=== PATIENT | female | born 1950 | race Caucasian/White ===

== ENCOUNTER 2020-11-11 07:56 | Outpatient (RCR) | payer MEDICARE, BC, SELFPAY ==
[2020-11-11 08:13] VITALS: BP 141/106; PULSE 103; TEMP 36.6
[2020-11-11 09:50] LABS: Erythrocyte Sedimentation Rate 63 mm/hr (0-30)
[2020-11-11 09:53] LABS: Basophil# 0.08 X10^3/uL; Basophil% 0.9 % (0-1); Eosinophils% 4.5 % (0-5); Hematocrit 46.6 % (37-47); Hemoglobin 14.2 g/dL (12.0-15.0); Lymphocyte % 25.7 % (19-41); Mean Corp Hgb Conc 30.5 g/dL (32-36); Mean Corpuscular Hgb 30.3 pg (27.0-32.0); Mean Corpuscular Volume 99.6 fL (81-99); Mean Platelet Vol. 9.5 fl (6.2-12.0); Monocyte# 1.13 X10^3/uL; Monocyte% 12.6 % (0-10); NRBC Flagged by Analyzer 0 % (0-5); Neutrophil # 5.01 X10^3/uL (2.7-7.7); Neutrophil % 55.9 % (47-70); Platelet Count 265 K/mm3 (150-450); RBC Distribution Width CV 14.6 % (11.6-14.6); RBC Distribution Width SD 53.6 fl (35.1-43.9); Red Blood Count 4.68 M/mm3 (4.2-5.4)
[2020-11-11 10:42] LABS: ALB/GLOB Ratio 0.8 RATIO (0.9-2.4); AST(SGOT) 46 U/L (15-37); Alanine Aminotransfer ALT/SGPT 54 U/L (13-56); Albumin, Serum 3.3 g/dL (3.2-5.0); Alkaline Phosphatase 105 U/L (45-117); Anion Gap 6 (5-15); BUN 13 mg/dL (7-18); BUN/Creat Ratio 14.7 RATIO (10-20); CRP 5.27 mg/L (0.0-3.0); Calcium,Total 8.6 mg/dL (8.5-10.1); Chloride 104 mmol/L (98-107); Creatinine, Serum 0.88 mg/dL (0.55-1.02); EST Glomerular Filtration Rate 67 mL/min (>60); Est Glom Filt Rate - Afr Amer 81 mL/min (>60); Glucose 86 mg/dL (74-106); Potassium 4.1 mmol/L (3.5-5.1); Prealbumin 20.3 mg/dL (20.0-40.0); Protein, Total 7.3 g/dL (6.4-8.2); Sodium Level 138 mmol/L (136-145)
--- NOTE | 2020-11-11 12:35 | PCM.WC.HP ---
History of Present Illness Date of Service: 11/11/20 Chief Complaint: left leg wound History of Wound: Gladis is a pleasant 70-year-old female with a past medical history of hypertension, stroke, coronary artery disease status post coronary stenting, and COPD. She presents today to the wound healing center for an initial evaluation of a left leg wound. She reports that her wound occurred approximately 1 month ago when she fell out of bed and scratched her left leg. She has been using Medihoney and a Telfa pad as a wound dressing, and changing this daily. She has been washing the wound with antibacterial soap and water daily. She does not use compression. She denies any history of vascular disease in the lower extremities. She denies any history of diabetes or renal disease. She suffered a stroke toward the end 2019, and has some residual left-sided upper and lower extremity weakness. She takes Plavix. She is a daily smoker. The patient denies fever, chills, nausea, vomiting, or diarrhea. The patient has not had significant redness, swelling, or purulent/malodorous drainage from affected area. [facility] Medical History (Updated 11/11/20 @ 12:59 by Katrin Herrera DISEASE CASE MANAGER RN, DISEASE CASE MANAGER RN-C) Atherosclerotic heart disease [place] coronary artery w/angina pectoris AVM (arteriovenous malformation) of colon, acquired with hemorrhage Bilateral pulmonary embolism Bipolar disorder with depression Cholelithiasis COPD (chronic obstructive pulmonary disease) DDD (degenerative disc disease) Esophageal stricture Gallstones GI bleed Hypertension Nicotine abuse Stroke Home Medications albuterol sulfate 90 mcg/actuation aerosol inhaler 1 - 2 puff INHALATION Q4H PRN PRN 100 Days #25 06/30/17 [History Last Taken Unknown] clonazepam 0.25 mg PO LUNCH 06/30/17 [History Last Taken Unknown] clonazepam 0.5 mg tablet 0.5 mg PO QHS 06/30/17 [History Last Taken Unknown] nitroglycerin 0.4 mg SUBLINGUAL Q5M PRN 06/30/17 [History Last Taken Unknown] iron aspgl,ps complex-vit C-sa 150 mg PO DAILYCM #30 cap 07/03/17 [Rx Last Taken Unknown] atorvastatin 80 mg tablet 80 mg PO QHS tab 08/28/17 [History Last Taken Unknown] lisinopril 40 mg tablet 40 mg PO QDAY 08/28/17 [History Last Taken Unknown] pantoprazole 40 mg tablet,delayed release 40 mg PO QDAY 08/28/17 [History Last Taken Unknown] rivaroxaban 20 mg tablet 20 mg PO QDAY 08/28/17 [History Last Taken Unknown] venlafaxine 75 mg capsule,extended release 24 hr 75 mg PO QDAY 09/17/17 [History Last Taken Unknown] Allergy/AdvReac Type Severity Reaction Status Date / Time No Known Allergies Allergy Verified 11/11/20 08:28 Family History Mother Heart disease Sister Heart disease Brother Heart disease Surgical History History of umbilical hernia repair Presence of stent in coronary artery in patient with coronary artery disease Social History (Updated 09/18/17 @ 11:[address] Ramiro Freeman MD) Smoking Status: Current every day smoker tobacco type: cigarettes Tobacco: How many years used: 40 ROS Constitutional Constitutional: Denies chills, fever(s) or night sweats Eyes Eyes: Denies change in vision or double vision ENT HEENT: Denies lip swelling or tongue swelling Cardiovascular Cardiovascular: Denies chest pain, leg edema or palpitations Respiratory/Chest Respiratory/Chest: Reports cough, shortness of breath with exertion and wheezing Gastrointestinal Gastrointestinal: Denies diarrhea, nausea or vomiting Genitourinary Genitourinary: Denies dysuria or hematuria Musculoskeletal Musculoskeletal: Reports extremity pain and muscle weakness; Denies abnormal gait Integumentary Integumentary: Reports wounds; Denies rash Neurologic Neurologic: Reports abnormal gait and focal weakness; Denies abnormal speech Endocrine Endocrinology: Denies cold intolerance, heat intolerance, polydipsia or polyuria Hematologic/Lymphatic Hematologic/Lymphatic: Reports easy bleeding; Denies easy bruising Vital Signs Vital Signs Vital Signs: 11/11/20 08:13 Temperature 97.8 F Temperature Source Temporal Pulse Rate 103 H Blood Pressure 141/106 H Blood Pressure Mean 117 Blood Pressure Source Monitor Blood Pressure Position Semi-Fowlers Blood Pressure Location Right Arm Physical Exam Const alert, no apparent distress and healthy appearing General Appearance: cooperative, comfortable and well kempt HEENT Head and Scalp: normocephalic and atraumatic General Ear: hearing grossly impaired Eyes EOMs intact bilaterally Neck supple and no JVD Resp normal respiratory effort, normal air movement and no use of accessory muscles Auscultation: wheezes throughout and diminished lung sounds diffuse; Negative for crackles, rales or rhonchi Cardio regular rate and regular rhythm GI normal to inspection, nondistended, normoactive bowel sounds Extremity normal capillary refill, no joint enlargement, no calf tenderness and no pedal edema General Extremity: edema left lower extremity mild; Negative for clubbing or cyanosis Peripheral Pulses: Yes dorsalis pedis pulses present bilateral 2+ Skin Wounds: wounds noted No malodorous Wound Narrative: Medial left lower leg ulcer with moderate amount of slough and devitalized tissue present. Mild periulcer erythema present. Mild periulcer swelling present. No tunneling, undermining, or probing to bone. No purulent/malodorous drainage. Tender to palpation. Neuro oriented x3 and moves all extremities Motor Exam: strength abnormal other (Decreased strength in left upper and left lower extremities) Psych mental status grossly normal, cooperative and affect normal Debridement Note Debridement Note Post-Debridement Measurements and Additional Note: Post-Debridement Measurements/Treatment - Nurse 3 - General Ulcer D/C NN Start: 11/11/20 08:13 Freq: Status: Active Protocol: Activity Type Activity Date Activity User E-Sign Co-Sign Detail Recorded Client Recorded Date Recorded By Document 11/11/20 09:08 CHRISTIANNE [id number] 11/11/20 09:08 CHRISTIANNE 11/11/20 09:08 Wound Care Nurse 3 #1 Left Medial Lower Extremity -Ulcer Cleansing Rinsed/ Irrigated with Saline -Primary Dressing Applied Aquacel Extra -Primary Dressing Covered/Secured with Dry Gauze, Secured with Tape -Aquacel Extra 1 Pain Scale: 0-10 Numeric Is Patient Pain Free? Yes WC - Visit Discharge Discharge Condition Stable Ambulatory Status Ambulatory Transportation Private Auto Accompanied by daughter Wound debrided: Medial left lower leg ulcer Laterality: Left Type of Debridement: Excisional debridement Anesthesia Used: 5% Lidocaine Gel and Cetacaine Depth: in the subcutaneous layer Percentage of wound debrided: 100 Instrument Used: 7mm curette Tissue Removed: Slough and devitalized tissue Severity: Fat Layer Exposed Amount of bleeding with debridement: Mild Bleeding Controlled with: Pressure Patient tolerated procedure: Patient tolerated procedure well Lab / Micro Data Result Diagrams: 11/11/20 09:26 11/11/20 09:26 Labs: Laboratory Results - last 24 hr 11/11/20 11/11/20 09:26 09:26 WBC 9.0 RBC 4.68 Hgb 14.2 Hct 46.6 MCV 99.6 H MCH 30.3 MCHC 30.5 L RDW Std Deviation 53.6 H RDW Coeff of Adelita 14.6 Plt Count 265 MPV 9.5 Immature Gran % (Auto) 0.400 Neut % (Auto) 55.9 Lymph % (Auto) 25.7 [place] % (Auto) 12.6 H Eos % (Auto) 4.5 Baso % (Auto) 0.9 Absolute Neuts (auto) 5.0 Absolute Lymphs (auto) 2.30 Nucleated RBC % 0 ESR 63 H Sodium 138 Potassium 4.1 Chloride 104 Carbon Dioxide 28.0 Anion Gap 6 BUN 13 Creatinine 0.88 Est GFR (MDRD) Af Amer 81 Est GFR (MDRD) Non-Af 67 BUN/Creatinine Ratio 14.7 Glucose 86 Calcium 8.6 Total Bilirubin 0.40 AST 46 H ALT 54 Alkaline Phosphatase 105 C-React Prot Ext Range 5.27 H Total Protein 7.3 Albumin 3.3 Globulin 4.0 Albumin/Globulin Ratio 0.8 L Prealbumin 20.3 Assessment & Plan Assessment/Plan (1) Venous ulcer of left leg: Status: Acute Code(s): I83.029 - Varicose veins of left lower extremity with ulcer of unspecified site; L97.929 - Non-pressure chronic ulcer of unspecified part of left lower leg with unspecified severity (2) Nonhealing ulcer of left lower leg with fat layer exposed: Status: Acute Code(s): L97.922 - Non-pressure chronic ulcer of unspecified part of left lower leg with fat layer exposed (3) Hypertension: Status: Chronic Code(s): I10 - Essential (primary) hypertension Qualifiers: Hypertension type: essential hypertension Qualified Code(s): I10 - Essential (primary) hypertension (4) Nicotine abuse: Status: Chronic Code(s): Z72.0 - Tobacco use (5) Presence of stent in coronary artery in patient with coronary artery disease: Status: Chronic Code(s): I25.10 - Atherosclerotic heart disease of [place] coronary artery without angina pectoris; Z95.5 - Presence of coronary angioplasty implant and graft Plan: Debridement performed today in clinic as annotated above. Aquacel Ag applied. We will apply for Puraply advanced skin product. At home wound-care instructions: Change dressing once daily or more frequently as needed due to contamination. Wash wounds daily with antibacterial soap and water, rinse and dry thoroughly before each dressing change. Compression: Double Tubigrip's applied for compression. Patient instructed to wear these daily. Off-loading: The patient was instructed to avoid pressure and friction on the affected areas. Reposition every 2 hours at minimum. Avoid prolonged standing and/or dangling of legs. When seated, feet should be elevated at chest level. Frequent ambulation is encouraged. Diet: Patient encouraged to increase protein intake. Smoking: The risks of smoking and benefits of smoking cessation were discussed with the patient today. The patient is encouraged to quit smoking. If smoking cessation aids are desired, the patient should contact their primary care provider to discuss appropriate options. Labs/cultures/imaging: Cultures ordered and collected today. Routine baseline lab work ordered. Venous studies ordered. Follow-up: Return to clinic in 1 week for re-evaluation. Return sooner or report to the emergency room should symptoms worsen, or new symptoms arise. Note: [employer] speech recognition emergency medical dispatcher software was used to create portions of this document. Sound-alike and misspelled words, as well as other emergency medical dispatcher errors may be contained in the documentation. Charges/Coding Visit Charges Office Visits / Consults: 35412 OV L4 New Procedures Integumentary 111xxx-113xx: [id number] Zoya subq tissue 20 sq cm/<
== END 2020-11-11 23:59 ==
LOC: WC 07:56
PROVIDERS: PCP Family Medicine; Visit Provider Nurse Practitioner Family
DX: I83.028 Varicose veins of left lower extremity with ulcer other part of lower leg (principal); L97.822 Non-pressure chronic ulcer of other part of left lower leg with fat layer exposed; S80.812S Abrasion, left lower leg, sequela; W06.XXXS Fall from bed, sequela; I10 Essential (primary) hypertension; I25.119 Atherosclerotic heart disease of native coronary artery with unspecified angina pectoris; J44.9 Chronic obstructive pulmonary disease, unspecified; I69.354 Hemiplegia and hemiparesis following cerebral infarction affecting left non-dominant side; I25.10 Atherosclerotic heart disease of native coronary artery without angina pectoris; Z86.711 Personal history of pulmonary embolism; F31.9 Bipolar disorder, unspecified; Z95.5 Presence of coronary angioplasty implant and graft; Z79.02 Long term (current) use of antithrombotics/antiplatelets; Z79.899 Other long term (current) drug therapy; Z79.01 Long term (current) use of anticoagulants; F17.210 Nicotine dependence, cigarettes, uncomplicated
CPT/HCPCS: 11042; 36415; 80053; 84134; 85025; 85652; 86140; 87070; 87075; 87077; 87186; 87205; 99213; G0463

== ENCOUNTER 2020-12-08 09:55 | Outpatient (RCR) | payer MEDICARE, BC, SELFPAY ==
[2017-09-18 10:58] VITALS: BMI 33.1
[2020-11-12 00:58] VITALS: BP 141/106; PULSE 103; TEMP 36.6
[2020-11-18 11:03] VITALS: BP 164/105; PULSE 94; TEMP 36; BMI 33.1
--- NOTE | 2020-11-18 13:53 | PCM.WC.PN ---
History of Present Illness Date of Service: 11/18/20 Chief Complaint: left leg wound History of Wound: Gladis is a pleasant 70-year-old female with a past medical history of hypertension, stroke, coronary artery disease status post coronary stenting, and COPD. She presents today to the wound healing center for an initial evaluation of a left leg wound. She reports that her wound occurred approximately 1 month ago when she fell out of bed and scratched her left leg. She has been using Medihoney and a Telfa pad as a wound dressing, and changing this daily. She has been washing the wound with antibacterial soap and water daily. She does not use compression. She denies any history of vascular disease in the lower extremities. She denies any history of diabetes or renal disease. She suffered a stroke toward the end of 2019, and has some residual left-sided upper and lower extremity weakness. She takes Plavix. She is a daily smoker. The patient denies fever, chills, nausea, vomiting, or diarrhea. The patient has not had significant redness, swelling, or purulent/malodorous drainage from affected area. Progress of Wound: The patient presents today for follow-up of her left lower extremity ulcer. Her ulcer has improved in size and appearance in the past week with the use of Aquacel Ag. The patient denies fever, chills, nausea, vomiting, or diarrhea. The patient has not had increased redness, swelling, or purulent/malodorous drainage from affected area. The patient's culture from 11/11/2020 revealed rare Staphylococcus aureus. Upon clinical correlation, no antibiotics are felt to be necessary at this time. Her baseline lab work was reviewed (CBCD, CMP, ESR, CRP, prealbumin) and was significant for the following: CRP 5.27 (H), ESR 63 (H), which is suspect is related to her chronic disease state. Objective Data Objective Data Vital Signs: Vital Signs Temp Pulse BP 96.8 F L 94 164/105 H 11/18/20 11:03 11/18/20 11:03 11/18/20 11:03 Body Mass Index (BMI) 33.1 Assessment & Plan Assessment/Plan (1) Venous ulcer of left leg: (2) Nonhealing ulcer of left lower leg with fat layer exposed: (3) Hypertension: QUALIFIERS: Hypertension type: essential hypertension Qualified Code(s): I10 - Essential (primary) hypertension (4) Nicotine abuse: (5) Presence of stent in coronary artery in patient with coronary artery disease: PLAN: Debridement performed today in clinic as annotated above. Aquacel Ag applied. We have applied for Puraply advanced skin product; approval pending. At home wound-care instructions: Change dressing once daily or more frequently as needed due to contamination. Wash wounds daily with antibacterial soap and water, rinse and dry thoroughly before each dressing change. Compression: Double Tubigrip's applied for compression. Patient instructed to wear these daily. Off-loading: The patient was instructed to avoid pressure and friction on the affected areas. Reposition every 2 hours at minimum. Avoid prolonged standing and/or dangling of legs. When seated, feet should be elevated at chest level. Frequent ambulation is encouraged. Diet: Patient encouraged to increase protein intake. Smoking: The risks of smoking and benefits of smoking cessation were discussed with the patient today. The patient is encouraged to quit smoking. If smoking cessation aids are desired, the patient should contact their primary care provider to discuss appropriate options. Labs/cultures/imaging: Cultures reviewed; positive for rare Staph aureus. Antibiotics deferred today due to no clinical evidence of infection. Routine baseline lab work reviewed as annotated above. Venous studies ordered; have yet to be scheduled. Follow-up: Return to clinic in 1 week for re-evaluation. Return sooner or report to the emergency room should symptoms worsen, or new symptoms arise. Note: [employer] speech recognition general warehouse worker software was used to create portions of this document. Sound-alike and misspelled words, as well as other general warehouse worker errors may be contained in the documentation. Charges/Coding Procedures Integumentary 111xxx-113xx: [id number] Zoya subq tissue 20 sq cm/< Physical Exam Const alert, no apparent distress and healthy appearing General Appearance: cooperative, comfortable and well kempt HEENT Head and Scalp: normocephalic and atraumatic General Ear: hearing grossly impaired Eyes EOMs intact bilaterally Neck supple and no JVD Resp normal respiratory effort, normal air movement and no use of accessory muscles Extremity normal capillary refill, no joint enlargement, no calf tenderness and no pedal edema General Extremity: Negative for clubbing, cyanosis or edema Peripheral Pulses: Yes dorsalis pedis pulses present left 2+ Skin Wounds: wounds noted No malodorous Wound Narrative: Medial left lower leg ulcer with small amount of slough and devitalized tissue present. Good granulation tissue is present. No periulcer erythema present. No periulcer swelling present. No tunneling, undermining, or probing to bone. No purulent/malodorous drainage. Mildly tender to palpation. Neuro oriented x3 and moves all extremities Psych mental status grossly normal, cooperative and affect normal Debridement Note Debridement Note Post-Debridement Measurements and Additional Note: Post-Debridement Measurements/Treatment - Nurse 1 - General Ulcer Assessment Start: 11/18/20 11:02 Freq: Status: Active Protocol: AHSAN Activity Type Activity Date Activity User E-Sign Co-Sign Detail Recorded Client Recorded Date Recorded By Document 11/18/20 11:03 CHRISTIANNE [id number] 11/18/20 11:04 CHRISTIANNE 11/18/20 11:03 WC - Today's Visit Information Type of service Follow-up Visit (Physician/BENCH ASSEMBLY INSPECTOR ) Arrival Mode Ambulatory Patient Identification Verified (Name & Yes ) Height and Weight Body Mass Index (BMI) 33.1 BMI Classification Obese Vital Signs Temperature (97.8 F-99.1 F) 96.8 F L Temperature Source Temporal Pulse Rate (60-100) 94 Pulse Location Monitor Blood Pressure (90/60-120/80) 164/105 H Blood Pressure Mean (mm Hg) 124 Source Monitor Position Semi-Fowlers Blood Pressure Location Right Arm History Since Last Visit- (Skip if this is Patient's initial visit) Have you changed medications since your No last visit? Any new allergies or adverse reactions No Had a fall/change in ADL's that may No increase risk of falls Signs or symptoms of abuse and/or No neglect since last visit Have you been in the hospital since your No last visit? Has dressing in place as prescribed Yes Has compression in place as prescribed Yes Has offloadiing in place as prescribed N/A Experienced any changes in pain level or No management Left Footwear Regular Shoe Right Footwear Regular Shoe Pain Scale: 0-10 Numeric Is Patient Pain Free? Yes - Nurse 1 - General Ulcer Measurement Start: 11/18/20 11:02 Freq: Status: Active Protocol: Activity Type Activity Date Activity User E-Sign Co-Sign Detail Recorded Client Recorded Date Recorded By Document 11/18/20 11:03 CHRISTIANNE [id number] 11/18/20 11:04 CHRISTIANNE 11/18/20 11:03 Wound Center Nurse 1 #1 Left Medial Lower Extremity -Current Size (cm) - Length 2 -Current Size (cm) - Width 1.9 -Current Size (cm) - Depth 0.2 -Total Square Cm 3.8 -Exudate Amt Medium -Exudate Type Serosanguineous -Wound Margin Distinct, Outline Attached -Granulation Amt Medium (34-66%) -Granulation Quality Red -Necrosis Amt Medium (34-66%) -Necrotic Tissue Type Adherent Slough -Texture (Viktoriya-wound Skin Appearance) Assessed, Scarring -Moisture (Viktoriya-wound Skin Appearance) No Abnormality, Assessed -Color (Viktoriya-wound Skin Appearance) No Abnormality, Assessed -Temperature (Viktoriya-wound Skin No Abnormality Appearance) (Pt Warm) -Tenderness on Palpation (Viktoriya-wound No Skin Appearance) -Ulcer Cleansing Rinsed/ Irrigated with Saline -Foul Odor after Cleansing No -Anesthetic Used 5% Lidocaine Gel Left Calf (cm) 29.9 Left Ankle (cm) 23.1 Wound debrided: Left lower leg Laterality: Left Type of Debridement: Excisional debridement Anesthesia Used: 4% Lidocaine Solution and Cetacaine Depth: in the subcutaneous layer Percentage of wound debrided: 100 Instrument Used: 7mm curette Tissue Removed: Slough and devitalized tissue Severity: Fat Layer Exposed Amount of bleeding with debridement: Moderate Bleeding Controlled with: Compression and gauze Patient tolerated procedure: Patient tolerated procedure well
[2020-11-25 11:28] VITALS: BP 186/105; PULSE 76; TEMP 36.1; BMI 33.1
--- NOTE | 2020-11-25 15:01 | PCM.WC.PN ---
History of Present Illness Date of Service: 11/25/20 Chief Complaint: left leg wound History of Wound: Gladis is a pleasant 70-year-old female with a past medical history of hypertension, stroke, coronary artery disease status post coronary stenting, and COPD. She presents today to the wound healing center for an initial evaluation of a left leg wound. She reports that her wound occurred approximately 1 month ago when she fell out of bed and scratched her left leg. She has been using Medihoney and a Telfa pad as a wound dressing, and changing this daily. She has been washing the wound with antibacterial soap and water daily. She does not use compression. She denies any history of vascular disease in the lower extremities. She denies any history of diabetes or renal disease. She suffered a stroke toward the end of 2019, and has some residual left-sided upper and lower extremity weakness. She takes Plavix. She is a daily smoker. The patient denies fever, chills, nausea, vomiting, or diarrhea. The patient has not had significant redness, swelling, or purulent/malodorous drainage from affected area. Progress of Wound: The patient presents today for follow-up of her left lower extremity ulcer. Her ulcer has improved in size and appearance in the past week with the use of Aquacel Ag. The patient denies fever, chills, nausea, vomiting, or diarrhea. The patient has not had increased redness, swelling, or purulent/malodorous drainage from affected area. The patient's culture from 11/11/2020 revealed rare Staphylococcus aureus. Upon clinical correlation, no antibiotics are felt to be necessary at this time. Her baseline lab work was reviewed (CBCD, CMP, ESR, CRP, prealbumin) and was significant for the following: CRP 5.27 (H), ESR 63 (H), which is suspect is related to her chronic disease state. She has been approved for puraply, nushield, and Apligraf. Objective Data Objective Data Vital Signs: Vital Signs Temp Pulse BP 97 F L 76 186/105 H 11/25/20 11:28 11/25/20 11:28 11/25/20 11:28 Body Mass Index (BMI) 33.1 Assessment & Plan Assessment/Plan (1) Venous ulcer of left leg: (2) Nonhealing ulcer of left lower leg with fat layer exposed: (3) Hypertension: QUALIFIERS: Hypertension type: essential hypertension Qualified Code(s): I10 - Essential (primary) hypertension (4) Nicotine abuse: (5) Presence of stent in coronary artery in patient with coronary artery disease: PLAN: Debridement performed today in clinic as annotated above. Given the duration of the wound and failure of the wound to respond to standard wound care, we applied and were approved for advanced skin substitutes (Puraply, Nushield, Apligraf). Puraply #1 applied to the medial left lower extremity today. 100% of the product was used. Covered with a wound veil and secured with Steri-Strips. 3M's applied for compression. At home wound-care instructions: Keep dressing clean and intact until next visit next week. Compression: Keep 3M's in place for compression. Do not remove. Keep these clean and dry. Cover when showering. If at any point the toes of the left foot become discolored or numb/tingling and this does not resolve with elevation of the left lower extremity, contact the wound healing center or report to the emergency department. Off-loading: The patient was instructed to avoid pressure and friction on the affected areas. Reposition every 2 hours at minimum. Avoid prolonged standing and/or dangling of legs. When seated, feet should be elevated at chest level. Frequent ambulation is encouraged. Diet: Patient encouraged to increase protein intake. She has been compliant with these instructions and reports using protein shakes daily for supplementation. Smoking: The risks of smoking and benefits of smoking cessation were discussed with the patient today. The patient is encouraged to quit smoking. If smoking cessation aids are desired, the patient should contact their primary care provider to discuss appropriate options. Labs/cultures/imaging: Cultures reviewed; positive for rare Staph aureus. Antibiotics deferred today due to no clinical evidence of infection. Routine baseline lab work reviewed as annotated above. Venous studies ordered; have yet to be scheduled. Follow-up: Return to clinic in 1 week for re-evaluation. Return sooner or report to the emergency room should symptoms worsen, or new symptoms arise. Note: [employer] speech recognition outbound sales professional software was used to create portions of this document. Sound-alike and misspelled words, as well as other outbound sales professional errors may be contained in the documentation. Charges/Coding Procedures Integumentary 150xxx-152xx: 56352 Skin sub graft trnk/arm/leg Physical Exam Const alert, no apparent distress and healthy appearing General Appearance: cooperative, comfortable and well kempt HEENT Head and Scalp: normocephalic and atraumatic General Ear: hearing grossly impaired Eyes EOMs intact bilaterally Neck supple and no JVD Resp normal respiratory effort, normal air movement and no use of accessory muscles Extremity normal capillary refill, no joint enlargement, no calf tenderness and no pedal edema General Extremity: Negative for clubbing, cyanosis or edema Peripheral Pulses: Yes dorsalis pedis pulses present left 2+ Skin Wounds: wounds noted No malodorous Wound Narrative: Medial left lower leg ulcer with small amount of slough and devitalized tissue present. Good granulation tissue is present. No periulcer erythema present. No periulcer swelling present. No tunneling, undermining, or probing to bone. No purulent/malodorous drainage. Mildly tender to palpation. Neuro moves all extremities Psych mental status grossly normal, cooperative and affect normal Debridement Note Debridement Note Post-Debridement Measurements and Additional Note: Post-Debridement Measurements/Treatment - Nurse 1 - General Ulcer Assessment Start: 11/18/20 11:02 Freq: Status: Active Protocol: WC.LOWBISHOPT Activity Type Activity Date Activity User E-Sign Co-Sign Detail Recorded Client Recorded Date Recorded By Document 11/18/20 11:03 CHRISTIANNE [id number] 11/18/20 11:04 KR Document 11/25/20 11:28 KR [id number] 11/25/20 11:29 KR 11/18/20 11/25/20 11:03 11:28 - Today's Visit Information Type of service Follow-up Visit Follow-up Visit (Physician/COMMERCIAL LINES SALES EXECUTIVE (Physician/COMMERCIAL LINES SALES EXECUTIVE ) ) Arrival Mode Ambulatory Ambulatory Patient Identification Verified (Name & Yes Yes ) Height and Weight Body Mass Index (BMI) 33.1 33.1 BMI Classification Obese Obese Vital Signs Temperature (97.8 F-99.1 F) 96.8 F L 97 F L Temperature Source Temporal Temporal Pulse Rate (60-100) 94 76 Pulse Location Monitor Monitor Blood Pressure (90/60-120/80) 164/105 H 186/105 H Blood Pressure Mean (mm Hg) 124 132 Source Monitor Monitor Position Semi-Fowlers Semi-Fowlers Blood Pressure Location Right Arm Left Arm History Since Last Visit- (Skip if this is Patient's initial visit) Have you changed medications since your No No last visit? Any new allergies or adverse reactions No No Had a fall/change in ADL's that may No No increase risk of falls Signs or symptoms of abuse and/or No No neglect since last visit Have you been in the hospital since your No No last visit? Has dressing in place as prescribed Yes Yes Has compression in place as prescribed Yes N/A Has offloadiing in place as prescribed N/A N/A Experienced any changes in pain level or No No management Left Footwear Regular Shoe Regular Shoe Right Footwear Regular Shoe Regular Shoe Pain Scale: 0-10 Numeric Is Patient Pain Free? Yes Yes WC - Nurse 1 - General Ulcer Measurement Start: 11/18/20 11:02 Freq: Status: Active Protocol: Activity Type Activity Date Activity User E-Sign Co-Sign Detail Recorded Client Recorded Date Recorded By Document 11/18/20 11:03 CHRISTIANNE [id number] 11/18/20 11:04 KR Document 11/25/20 11:28 KR [id number] 11/25/20 11:29 KR 11/18/20 11/25/20 11:03 11:28 Wound Center Nurse 1 #1 Left Medial Lower Extremity -Current Size (cm) - Length 2 2 -Current Size (cm) - Width 1.9 2.1 -Current Size (cm) - Depth 0.2 0.1 -Total Square Cm 3.8 4.2 -Exudate Amt Medium Small -Exudate Type Serosanguineous Serosanguineous -Wound Margin Distinct, Distinct, Outline Outline Attached Attached -Granulation Amt Medium (34-66%) Medium (34-66%) -Granulation Quality Red Red -Necrosis Amt Medium (34-66%) None Present (0 %) -Necrotic Tissue Type Adherent Slough -Texture (Viktoriya-wound Skin Appearance) Assessed, Assessed, Scarring Scarring -Moisture (Viktoriya-wound Skin Appearance) No Abnormality, No Abnormality, Assessed Assessed -Color (Viktoriya-wound Skin Appearance) No Abnormality, No Abnormality, Assessed Assessed -Temperature (Viktoriya-wound Skin No Abnormality No Abnormality Appearance) (Pt Warm) (Pt Warm) -Tenderness on Palpation (Viktoriya-wound No No Skin Appearance) -Ulcer Cleansing Rinsed/ Rinsed/ Irrigated with Irrigated with Saline Saline -Foul Odor after Cleansing No No -Anesthetic Used 5% Lidocaine 4% Lidocaine Gel Solution,5% Lidocaine Gel Left Calf (cm) 29.9 Left Ankle (cm) 23.1 WC - Nurse 2 - General Ulcer CM Notes Start: 11/18/20 11:02 Freq: Status: Active Protocol: Activity Type Activity Date Activity User E-Sign Co-Sign Detail Recorded Client Recorded Date Recorded By Document 11/18/20 14:37 PL [id number] 11/18/20 14:38 PL Document 11/25/20 11:35 JF [id number] 11/25/20 11:37 JF Edit Result 11/25/20 11:35 JF (1) [id number] 11/25/20 11:49 JF (1) #1 Left Medial Lower Extremity - Bioengineered Tissue No => Yes - Type of Bioengineered Tissue => PuraPly AM - Expiration Date => 10/31/22 - Product Lot Number => [id number] - Percent Used => 100 - Lot number of Saline Used => [id number] - Debridement - Subq, 1st 20sq cm Yes => No - Apply Skin Sub - 1st 25 sq cm - Legs => 1 - PuraPly AM (per sq cm) => 4 11/18/20 11/25/20 14:37 11:35 Wound Center Nurse 2 #1 Left Medial Lower Extremity -Time 11:23 11:36 -Correct Patient Yes Yes -Correct Side, Site, Position Yes Yes -Correct Procedure Yes Yes -Procedure Performed Yes Yes -Type of Procedure Debridement Debridement -Clinical Debridement Subcutaneous Subcutaneous -Tissue Removed Subcutaneous Subcutaneous -Post Debridement (cm) - Length 2.5 2.1 -Post Debridement (cm) - Width 2.5 2.1 -Post Debridement (cm) - Depth 0.1 0.1 -Total Square (Post) (cm) 6.25 4.41 -Area of Debridement (cm) - Length 2.5 2.1 -Area of Debridement (cm) - Width 2.5 2.1 -Total Square (Area) (cm) 6.25 4.41 -Tunneling No No -Undermining/Tunneling No No -Circular Undermining No No -Wound/Ulcer Outcome Not Healed Not Healed -Ulcer Cleansing Rinsed/ Rinsed/ Irrigated with Irrigated with Saline Saline -Foul Odor after Cleansing No No -Bioengineered Tissue No Yes -Type of Bioengineered Tissue PuraPly AM -Expiration Date 10/31/22 -Product Lot Number [id number] -Percent Used 100 -Lot number of Saline Used [id number] -Bleeding Controlled with Pressure Pressure -Offloading No -Treatment Response Procedure Procedure Tolerated Well Tolerated Well -Debridement - Subq, 1st 20sq cm Yes No -Apply Skin Sub - 1st 25 sq cm - Legs 1 -PuraPly AM (per sq cm) 4 Pain Scale: 0-10 Numeric Is Patient Pain Free? Yes Yes - Nurse 3 - General Ulcer D/C NN Start: 11/18/20 11:02 Freq: Status: Active Protocol: Activity Type Activity Date Activity User E-Sign Co-Sign Detail Recorded Client Recorded Date Recorded By Document 11/25/20 12:04 CHRISTIANNE [id number] 11/25/20 12:05 CHRISTIANNE 11/25/20 12:04 Wound Care Nurse 3 #1 Left Medial Lower Extremity -Primary Dressing Covered/Secured with Dry Gauze,Dry Gauze & Roll Gauze,Secured with Tape Pain Scale: 0-10 Numeric Is Patient Pain Free? Yes - Visit Discharge Discharge Condition Stable Ambulatory Status Ambulatory Transportation Private Auto Accompanied by Wound debrided: Left medial lower extremity Laterality: Left Type of Debridement: Excisional debridement Anesthesia Used: 5% Lidocaine Gel Depth: in the subcutaneous layer Percentage of wound debrided: 100 Instrument Used: 7mm curette Tissue Removed: Slough and devitalized tissue Severity: Fat Layer Exposed Amount of bleeding with debridement: Moderate Bleeding Controlled with: Pressure Patient tolerated procedure: Patient tolerated procedure well
[2020-12-02 10:45] VITALS: BP 158/80; PULSE 86; RESP 22; TEMP 36.9; BMI 33.1
--- NOTE | 2020-12-02 13:31 | PN.PCM_ITS ---
History of Present Illness Date of Service: 12/02/20 Chief Complaint: left leg wound History of Wound: Gladis is a pleasant 70-year-old female with a past medical history of hypertension, stroke, coronary artery disease status post coronary stenting, and COPD. She presents today to the wound healing center for an initial evaluation of a left leg wound. She reports that her wound occurred approximately 1 month ago when she fell out of bed and scratched her left leg. She has been using Medihoney and a Telfa pad as a wound dressing, and changing this daily. She has been washing the wound with antibacterial soap and water daily. She does not use compression. She denies any history of vascular disease in the lower extremities. She denies any history of diabetes or renal disease. She suffered a stroke toward the end of 2019, and has some residual left-sided upper and lower extremity weakness. She takes Plavix. She is a daily smoker. The patient denies fever, chills, nausea, vomiting, or diarrhea. The patient has not had significant redness, swelling, or purulent/malodorous drainage from affected area. Progress of Wound: The patient presents today for follow-up of her left lower extremity ulcer. Her ulcer has improved in size and appearance in the past week with the use of Puraply. The patient denies fever, chills, nausea, vomiting, or diarrhea. The patient has not had increased redness, swelling, or purulent/malodorous drainage from affected area. The patient's culture from 11/11/2020 revealed rare Staphylococcus aureus. Upon clinical correlation, no antibiotics are felt to be necessary at this time. Her baseline lab work was reviewed (CBCD, CMP, ESR, CRP, prealbumin) and was significant for the following: CRP 5.27 (H), ESR 63 (H), which is suspect is related to her chronic disease state. She has been approved for puraply, nushield, and Apligraf. Objective Data Objective Data Vital Signs: Vital Signs Temp Pulse Resp BP 98.4 F 86 22 H 158/80 H 12/02/20 10:45 12/02/20 10:45 12/02/20 10:45 12/02/20 10:45 Body Mass Index (BMI) 33.1 Charges/Coding Procedures Integumentary 150xxx-152xx: [id number] Skin sub graft trnk/arm/leg Physical Exam Const alert, no apparent distress and healthy appearing General Appearance: cooperative, comfortable and well kempt HEENT Head and Scalp: normocephalic and atraumatic General Ear: hearing grossly impaired Eyes EOMs intact bilaterally Neck supple and no JVD Resp normal respiratory effort, normal air movement and no use of accessory muscles Extremity normal capillary refill, no joint enlargement, no calf tenderness and no pedal edema General Extremity: Negative for clubbing, cyanosis or edema Peripheral Pulses: Yes dorsalis pedis pulses present left 2+ Skin Wounds: wounds noted No malodorous Wound Narrative: Medial left lower leg ulcer with small amount of slough and devitalized tissue present. Good granulation tissue is present. No periulcer erythema present. No periulcer swelling present. No tunneling, undermining, or probing to bone. No purulent/malodorous drainage. Mildly tender to palpation. Neuro moves all extremities Psych mental status grossly normal, cooperative and affect normal Debridement Note Debridement Note Post-Debridement Measurements and Additional Note: Post-Debridement Measurements/Treatment - Nurse 1 - General Ulcer Assessment Start: 11/18/20 11:02 Freq: Status: Active Protocol: [email or web address] Activity Type Activity Date Activity User E-Sign Co-Sign Detail Recorded Client Recorded Date Recorded By Document 11/18/20 11:03 KR [id number] 11/18/20 11:04 KR Document 11/25/20 11:28 KR [id number] 11/25/20 11:29 KR Document 12/02/20 10:45 DL [id number] 12/02/20 10:53 DL 11/18/20 11/25/20 12/02/20 11:03 11:28 10:45 - Today's Visit Information Type of service Follow-up Visit Follow-up Visit Follow-up Visit (Physician/NEWSROOM INTERN (Physician/NEWSROOM INTERN (Physician/NEWSROOM INTERN ) ) ) Arrival Mode Ambulatory Ambulatory Ambulatory Patient Identification Verified (Name & Yes Yes Yes ) Patient Requires Transmission-Based No Precautions Height and Weight Body Mass Index (BMI) 33.1 33.1 33.1 BMI Classification Obese Obese Obese Vital Signs Temperature (97.8 F-99.1 F) 96.8 F L 97 F L 98.4 F Temperature Source Temporal Temporal Temporal Pulse Rate (60-100) 94 76 86 Pulse Location Monitor Monitor Apical Respiratory Rate (12-18) 22 H Respiratory rate source Observation Blood Pressure (90/60-120/80) 164/105 H 186/105 H 158/80 H Blood Pressure Mean (mm Hg) 124 132 106 Source Monitor Monitor Monitor Position Semi-Fowlers Semi-Fowlers Blood Pressure Location Right Arm Left Arm History Since Last Visit- (Skip if this is Patient's initial visit) Have you changed medications since your No No last visit? Any new allergies or adverse reactions No No No Had a fall/change in ADL's that may No No increase risk of falls Signs or symptoms of abuse and/or No No neglect since last visit Have you been in the hospital since your No No last visit? Has dressing in place as prescribed Yes Yes Yes Has compression in place as prescribed Yes N/A No Has offloadiing in place as prescribed N/A N/A N/A Experienced any changes in pain level or No No No management Left Footwear Regular Shoe Regular Shoe Right Footwear Regular Shoe Regular Shoe Pain Scale: 0-10 Numeric Is Patient Pain Free? Yes Yes WC - Nurse 1 - General Ulcer Measurement Start: 11/18/20 11:02 Freq: Status: Active Protocol: Activity Type Activity Date Activity User E-Sign Co-Sign Detail Recorded Client Recorded Date Recorded By Document 11/18/20 11:03 KR [id number] 11/18/20 11:04 KR Document 11/25/20 11:28 KR [id number] 11/25/20 11:29 KR Document 12/02/20 10:45 DL [id number] 12/02/20 10:53 DL 11/18/20 11/25/20 12/02/20 11:03 11:28 10:45 Wound Center Nurse 1 #1 Left Medial Lower Extremity -Current Size (cm) - Length 2 2 2.1 -Current Size (cm) - Width 1.9 2.1 1.7 -Current Size (cm) - Depth 0.2 0.1 0.1 -Total Square Cm 3.8 4.2 3.57 -Photo Taken No -Exudate Amt Medium Small Small -Exudate Type Serosanguineous Serosanguineous Serosanguineous -Wound Margin Distinct, Distinct, Thickened Outline Outline Attached Attached -Granulation Amt Medium (34-66%) Medium (34-66%) Medium (34-66%) -Granulation Quality Red Red Red -Necrosis Amt Medium (34-66%) None Present (0 Medium (34-66%) %) -Necrotic Tissue Type Adherent Slough Adherent Slough -Structure Exposed N/A -Texture (Viktoriya-wound Skin Appearance) Assessed, Assessed, Scarring Scarring Scarring -Moisture (Viktoriya-wound Skin Appearance) No Abnormality, No Abnormality, No Abnormality Assessed Assessed -Color (Viktoriya-wound Skin Appearance) No Abnormality, No Abnormality, No Abnormality Assessed Assessed -Temperature (Viktoriya-wound Skin No Abnormality No Abnormality No Abnormality Appearance) (Pt Warm) (Pt Warm) (Pt Warm) -Tenderness on Palpation (Viktoriya-wound No No Skin Appearance) -Ulcer Cleansing Rinsed/ Rinsed/ Wound Cleanser Irrigated with Irrigated with Saline Saline -Foul Odor after Cleansing No No No -Anesthetic Used 5% Lidocaine 4% Lidocaine 4% Lidocaine Gel Solution,5% Solution Lidocaine Gel Left Calf (cm) 29.9 33 Left Ankle (cm) 23.1 21.3 WC - Nurse 2 - General Ulcer CM Notes Start: 11/18/20 11:02 Freq: Status: Active Protocol: Activity Type Activity Date Activity User E-Sign Co-Sign Detail Recorded Client Recorded Date Recorded By Document 11/18/20 14:37 PL [id number] 11/18/20 14:38 PL Document 11/25/20 11:35 JF [id number] 11/25/20 11:37 JF Edit Result 11/25/20 11:35 JF (1) [id number] 11/25/20 11:49 JF (1) #1 Left Medial Lower Extremity - Bioengineered Tissue No => Yes - Type of Bioengineered Tissue => PuraPly AM - Expiration Date => 10/31/22 - Product Lot Number => [id number] - Percent Used => 100 - Lot number of Saline Used => [id number] - Debridement - Subq, 1st 20sq cm Yes => No - Apply Skin Sub - 1st 25 sq cm - Legs => 1 - PuraPly AM (per sq cm) => 4 11/18/20 11/25/20 14:37 11:35 Wound Center Nurse 2 #1 Left Medial Lower Extremity -Time 11:23 11:36 -Correct Patient Yes Yes -Correct Side, Site, Position Yes Yes -Correct Procedure Yes Yes -Procedure Performed Yes Yes -Type of Procedure Debridement Debridement -Clinical Debridement Subcutaneous Subcutaneous -Tissue Removed Subcutaneous Subcutaneous -Post Debridement (cm) - Length 2.5 2.1 -Post Debridement (cm) - Width 2.5 2.1 -Post Debridement (cm) - Depth 0.1 0.1 -Total Square (Post) (cm) 6.25 4.41 -Area of Debridement (cm) - Length 2.5 2.1 -Area of Debridement (cm) - Width 2.5 2.1 -Total Square (Area) (cm) 6.25 4.41 -Tunneling No No -Undermining/Tunneling No No -Circular Undermining No No -Wound/Ulcer Outcome Not Healed Not Healed -Ulcer Cleansing Rinsed/ Rinsed/ Irrigated with Irrigated with Saline Saline -Foul Odor after Cleansing No No -Bioengineered Tissue No Yes -Type of Bioengineered Tissue PuraPly AM -Expiration Date 10/31/22 -Product Lot Number [id number] -Percent Used 100 -Lot number of Saline Used [id number] -Bleeding Controlled with Pressure Pressure -Offloading No -Treatment Response Procedure Procedure Tolerated Well Tolerated Well -Debridement - Subq, 1st 20sq cm Yes No -Apply Skin Sub - 1st 25 sq cm - Legs 1 -PuraPly AM (per sq cm) 4 Pain Scale: 0-10 Numeric Is Patient Pain Free? Yes Yes - Nurse 3 - General Ulcer D/C NN Start: 11/18/20 11:02 Freq: Status: Active Protocol: Activity Type Activity Date Activity User E-Sign Co-Sign Detail Recorded Client Recorded Date Recorded By Document 11/25/20 12:04 KR [id number] 11/25/20 12:05 KR Edit Result 11/25/20 12:04 KR (1) [id number] 11/28/20 06:59 PL (1) Left - Multi-Layered Wrap Application => Multi-Layer Comp - => Left ($) 11/25/20 12:04 Wound Care Nurse 3 #1 Left Medial Lower Extremity -Primary Dressing Covered/Secured with Dry Gauze,Dry Gauze & Roll Gauze,Secured with Tape Left -Multi-Layered Wrap Application Multi-Layer Comp - Left ($) Pain Scale: 0-10 Numeric Is Patient Pain Free? Yes - Visit Discharge Discharge Condition Stable Ambulatory Status Ambulatory Transportation Private Auto Accompanied by Wound debrided: Left lower extremity ulcer Laterality: Left Type of Debridement: Excisional debridement Anesthesia Used: 4% Lidocaine Solution Depth: in the subcutaneous layer Percentage of wound debrided: 100 Instrument Used: 7mm curette Tissue Removed: Slough and devitalized tissue Severity: Fat Layer Exposed Amount of bleeding with debridement: Mild Bleeding Controlled with: Pressure Patient tolerated procedure: Patient tolerated procedure well Assessment/Plan Assessment/Plan (1) Venous ulcer of left leg: CODE(S): Code(s): I83.029 - Varicose veins of left lower extremity with ulcer of unspecified site; L97.929 - Non-pressure chronic ulcer of unspecified part of left lower leg with unspecified severity (2) Nonhealing ulcer of left lower leg with fat layer exposed: CODE(S): Code(s): L97.922 - Non-pressure chronic ulcer of unspecified part of left lower leg with fat layer exposed (3) Hypertension: CODE(S): Code(s): I10 - Essential (primary) hypertension QUALIFIERS: Hypertension type: essential hypertension Qualified Code(s): I10 - Essential (primary) hypertension (4) Nicotine abuse: CODE(S): Code(s): Z72.0 - Tobacco use (5) Presence of stent in coronary artery in patient with coronary artery disease: CODE(S): Code(s): I25.10 - Atherosclerotic heart disease of [place] coronary artery without angina pectoris; Z95.5 - Presence of coronary angioplasty implant and graft PLAN: Debridement performed today in clinic as annotated above. Given the duration of the wound and failure of the wound to respond to standard wound care, we applied and were approved for advanced skin substitutes (Puraply, Nushield, Apligraf). She has completed the following advanced skin substitute applications: 1 application of Puraply. Nushield #1 (advanced skin substitute #2) applied to the medial left lower extremity today. 100% of the product was used. Covered with a wound veil and secured with Steri-Strips. 3M's applied for compression. At home wound-care instructions: Keep dressing clean and intact until next visit next week. Compression: Keep 3M's in place for compression. Do not remove. Keep these clean and dry. Cover when showering. If at any point the toes of the left foot become discolored or numb/tingling and this does not resolve with elevation of the left lower extremity, contact the wound healing center or report to the emergency department. Off-loading: The patient was instructed to avoid pressure and friction on the affected areas. Reposition every 2 hours at minimum. Avoid prolonged standing and/or dangling of legs. When seated, feet should be elevated at chest level. Frequent ambulation is encouraged. Diet: Patient encouraged to increase protein intake. She has been compliant with these instructions and reports using protein shakes daily for supplementation. Smoking: The risks of smoking and benefits of smoking cessation were discussed with the patient today. The patient is encouraged to reduce or quit smoking. If smoking cessation aids are desired, the patient should contact their primary care provider to discuss appropriate options. Labs/cultures/imaging: Cultures reviewed; positive for rare Staph aureus. Antibiotics deferred today due to no clinical evidence of infection. Routine baseline lab work reviewed as annotated above. Venous studies ordered; have yet to be scheduled. Follow-up: Return to clinic in 1 week for re-evaluation. Return sooner or report to the emergency room should symptoms worsen, or new symptoms arise. Note: [employer] speech recognition funeral location manager software was used to create portions of this document. Sound-alike and misspelled words, as well as other funeral location manager errors may be contained in the documentation.
[2020-12-08 10:01] VITALS: BP 181/104; PULSE 94; RESP 22; TEMP 36.8; BMI 33.1
--- NOTE | 2020-12-08 10:42 | PCM.WC.HP ---
History of Present Illness Date of Service: 12/08/20 Chief Complaint: Left leg wound History of Wound: This is a 70-year-old female who has recently been under the care of Dr. Katrin Herrera NP, at the [facility]. The patient suffers from multiple pre-existing medical conditions, which include hypertension, cerebrovascular accident, coronary artery disease status post coronary stenting, chronic obstructive pulmonary disease, and obesity. Patient's traumatic wound occurred approximately 1 month prior to presentation when she fell out of bed. At the time of her initial presentation, the patient had been using Medihoney and a Telfa pad topically. She had also been washing the wound with antibacterial soap and water daily. She denies a history of diabetes mellitus. She is a daily smoker. Last week, a NuShield allograft was placed, the first such application of an allograft. Progress of Wound: Her baseline lab work was reviewed (CBCD, CMP, ESR, CRP, prealbumin) and was significant for the following: CRP 5.27 (H), ESR 63 (H), which is suspect is related to her chronic disease state. She has been approved for puraply, nushield, and Apligraf. [facility] Medical History (Updated 12/08/20 @ 10:[address] Nguyễn Wagner MD) Atherosclerotic heart disease [place] coronary artery w/angina pectoris AVM (arteriovenous malformation) of colon, acquired with hemorrhage Bilateral pulmonary embolism Bipolar disorder with depression Cholelithiasis COPD (chronic obstructive pulmonary disease) COPD (chronic obstructive pulmonary disease) DDD (degenerative disc disease) Esophageal stricture Gallstones GI bleed Hearing deficit Hypertension Nicotine abuse Obesity Stroke Traumatic wound Traumatic wound Home Medications albuterol sulfate 90 mcg/actuation aerosol inhaler 1 - 2 puff INHALATION Q4H PRN PRN 100 Days #25 06/30/17 [History Last Taken Unknown] clonazepam 0.25 mg PO LUNCH 06/30/17 [History Last Taken Unknown] clonazepam 0.5 mg tablet 0.5 mg PO QHS 06/30/17 [History Last Taken Unknown] nitroglycerin 0.4 mg SUBLINGUAL Q5M PRN 06/30/17 [History Last Taken Unknown] iron aspgl,ps complex-vit C-sa 150 mg PO DAILYCM #30 cap 07/03/17 [Rx Last Taken Unknown] atorvastatin 80 mg tablet 80 mg PO QHS tab 08/28/17 [History Last Taken Unknown] lisinopril 40 mg tablet 40 mg PO QDAY 08/28/17 [History Last Taken Unknown] pantoprazole 40 mg tablet,delayed release 40 mg PO QDAY 08/28/17 [History Last Taken Unknown] rivaroxaban 20 mg tablet 20 mg PO QDAY 08/28/17 [History Last Taken Unknown] venlafaxine 75 mg capsule,extended release 24 hr 75 mg PO QDAY 09/17/17 [History Last Taken Unknown] Allergy/AdvReac Type Severity Reaction Status Date / Time No Known Allergies Allergy Verified 11/11/20 08:28 Family History Mother Heart disease Sister Heart disease Brother Heart disease Surgical History History of umbilical hernia repair Presence of stent in coronary artery in patient with coronary artery disease Social History (Updated 09/18/17 @ 11:[address] Ramiro Freeman MD) Smoking Status: Current every day smoker tobacco type: cigarettes Tobacco: How many years used: 40 Vital Signs Vital Signs Vital Signs: 12/08/20 10:01 Temperature 98.3 F Temperature Source Temporal Pulse Rate 94 Respiratory Rate 22 H Blood Pressure 181/104 H Blood Pressure Mean 129 Blood Pressure Source Monitor Weight Body Mass Index (BMI) 33.1 Physical Exam Const alert, oriented x3, no apparent distress and well nourished Constitutional Narrative: Patient demonstrates a hearing deficit. General Appearance: cooperative, comfortable, well kempt and well developed HEENT normocephalic and moist oral mucous membranes Head and Scalp: normal to inspection, normocephalic and atraumatic Eyes PERRL and EOMs intact bilaterally General Eye: normal appearance of both eyes Neck General: trachea midline Resp normal respiratory effort and no use of accessory muscles Effort and Inspection: able to speak in complete sentences GI GI Narrative: Obese Rectal Exam: deferred Extremity no calf tenderness General Extremity: Negative for clubbing or cyanosis Skin Wound Narrative: The wound is located on the medial aspect of the distal left calf. Dimensions are documented elsewhere. Upon initial inspection, the remnants of the prior weeks skin substitute remained. This was removed by means of debridement, revealing a generally pink and healthy wound beneath. The base of the wound was noted to be pink, with only a small amount of bioburden. There was no sign of infection or cellulitis. Dimensions were documented elsewhere. Neuro oriented x3 and CN's II-XII intact bilaterally Neuro Narrative: A moderate hearing deficit is noted Speech: speech normal Psych mental status grossly normal Appearance: grossly normal and appropriate Activity / Motor Behavior: appropriate eye contact Debridement Note Debridement Note Post-Debridement Measurements and Additional Note: Post-Debridement Measurements/Treatment - Nurse 1 - General Ulcer Assessment Start: 11/18/20 11:02 Freq: Status: Active Protocol: [employer] Activity Type Activity Date Activity User E-Sign Co-Sign Detail Recorded Client Recorded Date Recorded By Document 11/18/20 11:03 KR [id number] 11/18/20 11:04 KR Document 11/25/20 11:28 KR [id number] 11/25/20 11:29 KR Document 12/02/20 10:45 DL [id number] 12/02/20 10:53 DL Document 12/08/20 10:01 DL [id number] 12/08/20 10:09 DL 11/18/20 11/25/20 12/02/20 11:03 11:28 10:45 - Today's Visit Information Type of service Follow-up Visit Follow-up Visit Follow-up Visit (Physician/MOTEL CLERK (Physician/MOTEL CLERK (Physician/MOTEL CLERK ) ) ) Arrival Mode Ambulatory Ambulatory Ambulatory Transfer Assistance Patient Identification Verified (Name & Yes Yes Yes ) Patient Requires Transmission-Based No Precautions Height and Weight Body Mass Index (BMI) 33.1 33.1 33.1 BMI Classification Obese Obese Obese Vital Signs Temperature (97.8 F-99.1 F) 96.8 F L 97 F L 98.4 F Temperature Source Temporal Temporal Temporal Pulse Rate (60-100) 94 76 86 Pulse Location Monitor Monitor Apical Respiratory Rate (12-18) 22 H Respiratory rate source Observation Blood Pressure (90/60-120/80) 164/105 H 186/105 H 158/80 H Blood Pressure Mean 124 132 106 Source Monitor Monitor Monitor Position Semi-Fowlers Semi-Fowlers Blood Pressure Location Right Arm Left Arm History Since Last Visit- (Skip if this is Patient's initial visit) Have you changed medications since your No No last visit? Any new allergies or adverse reactions No No No Had a fall/change in ADL's that may No No increase risk of falls Signs or symptoms of abuse and/or No No neglect since last visit Have you been in the hospital since your No No last visit? Has dressing in place as prescribed Yes Yes Yes Has compression in place as prescribed Yes N/A No Has offloadiing in place as prescribed N/A N/A N/A Experienced any changes in pain level or No No No management Left Footwear Regular Shoe Regular Shoe Right Footwear Regular Shoe Regular Shoe Pain Scale: 0-10 Numeric Is Patient Pain Free? Yes Yes 12/08/20 10:01 WC - Today's Visit Information Type of service Follow-up Visit (Physician/MOTEL CLERK ) Arrival Mode Ambulatory Transfer Assistance None Patient Identification Verified (Name & Yes ) Patient Requires Transmission-Based No Precautions Height and Weight Body Mass Index (BMI) 33.1 BMI Classification Obese Vital Signs Temperature (97.8 F-99.1 F) 98.3 F Temperature Source Temporal Pulse Rate (60-100) 94 Pulse Location Monitor Respiratory Rate (12-18) 22 H Respiratory rate source Observation Blood Pressure (90/60-120/80) 181/104 H Blood Pressure Mean 129 Source Monitor Position Blood Pressure Location History Since Last Visit- (Skip if this is Patient's initial visit) Have you changed medications since your No last visit? Any new allergies or adverse reactions No Had a fall/change in ADL's that may No increase risk of falls Signs or symptoms of abuse and/or No neglect since last visit Have you been in the hospital since your No last visit? Has dressing in place as prescribed Yes Has compression in place as prescribed Yes Has offloadiing in place as prescribed N/A Experienced any changes in pain level or No management Left Footwear Right Footwear Pain Scale: 0-10 Numeric Is Patient Pain Free? Yes - Nurse 1 - General Ulcer Measurement Start: 11/18/20 11:02 Freq: Status: Active Protocol: Activity Type Activity Date Activity User E-Sign Co-Sign Detail Recorded Client Recorded Date Recorded By Document 11/18/20 11:03 KR [id number] 11/18/20 11:04 KR Document 11/25/20 11:28 KR [id number] 11/25/20 11:29 KR Document 12/02/20 10:45 DL [id number] 12/02/20 10:53 DL Document 12/08/20 10:01 DL [id number] 12/08/20 10:09 DL 11/18/20 11/25/20 12/02/20 11:03 11:28 10:45 Wound Center Nurse 1 #1 Left Medial Lower Extremity -Current Size (cm) - Length 2 2 2.1 -Current Size (cm) - Width 1.9 2.1 1.7 -Current Size (cm) - Depth 0.2 0.1 0.1 -Total Square Cm 3.8 4.2 3.57 -Photo Taken No -Exudate Amt Medium Small Small -Exudate Type Serosanguineous Serosanguineous Serosanguineous -Wound Margin Distinct, Distinct, Thickened Outline Outline Attached Attached -Granulation Amt Medium (34-66%) Medium (34-66%) Medium (34-66%) -Granulation Quality Red Red Red -Necrosis Amt Medium (34-66%) None Present (0 Medium (34-66%) %) -Necrotic Tissue Type Adherent Slough Adherent Slough -Structure Exposed N/A -Texture ([place]-wound Skin Appearance) Assessed, Assessed, Scarring Scarring Scarring -Moisture ([place]-wound Skin Appearance) No Abnormality, No Abnormality, No Abnormality Assessed Assessed -Color ([place]-wound Skin Appearance) No Abnormality, No Abnormality, No Abnormality Assessed Assessed -Temperature ([place]-wound Skin No Abnormality No Abnormality No Abnormality Appearance) (Pt Warm) (Pt Warm) (Pt Warm) -Tenderness on Palpation ([place]-wound No No Skin Appearance) -Ulcer Cleansing Rinsed/ Rinsed/ Wound Cleanser Irrigated with Irrigated with Saline Saline -Foul Odor after Cleansing No No No -Anesthetic Used 5% Lidocaine 4% Lidocaine 4% Lidocaine Gel Solution,5% Solution Lidocaine Gel Left Calf (cm) 29.9 33 Left Ankle (cm) 23.1 21.3 12/08/20 10:01 Wound Center Nurse 1 #1 Left Medial Lower Extremity -Current Size (cm) - Length 0.9 -Current Size (cm) - Width 1.3 -Current Size (cm) - Depth 0.1 -Total Square Cm 1.17 -Photo Taken No -Exudate Amt Small -Exudate Type Serosanguineous -Wound Margin Distinct, Outline Attached -Granulation Amt Small (1-33%) -Granulation Quality Pale,Tull -Necrosis Amt Large (67-100%) -Necrotic Tissue Type Adherent Slough -Structure Exposed N/A -Texture ([place]-wound Skin Appearance) Scarring -Moisture ([place]-wound Skin Appearance) No Abnormality -Color ([place]-wound Skin Appearance) No Abnormality -Temperature ([place]-wound Skin No Abnormality Appearance) (Pt Warm) -Tenderness on Palpation ([place]-wound No Skin Appearance) -Ulcer Cleansing Wound Cleanser -Foul Odor after Cleansing No -Anesthetic Used 4% Lidocaine Solution Left Calf (cm) 33 Left Ankle (cm) 21.2 WC - Nurse 2 - General Ulcer CM Notes Start: 11/18/20 11:02 Freq: Status: Active Protocol: Activity Type Activity Date Activity User E-Sign Co-Sign Detail Recorded Client Recorded Date Recorded By Document 11/18/20 14:37 PL [id number] 11/18/20 14:38 PL Document 11/25/20 11:35 JF [id number] 11/25/20 11:37 JF Edit Result 11/25/20 11:35 JF (1) [id number] 11/25/20 11:49 JF Document 12/02/20 13:43 PL [id number] 12/02/20 13:46 PL Document 12/08/20 10:31 PL [id number] 12/08/20 10:37 PL (1) #1 Left Medial Lower Extremity - Bioengineered Tissue No => Yes - Type of Bioengineered Tissue => PuraPly AM - Expiration Date => 10/31/22 - Product Lot Number => [id number] - Percent Used => 100 - Lot number of Saline Used => [id number] - Debridement - Subq, 1st 20sq cm Yes => No - Apply Skin Sub - 1st 25 sq cm - Legs => 1 - PuraPly AM (per sq cm) => 4 11/18/20 11/25/20 12/02/20 14:37 11:35 13:43 Wound Center Nurse 2 #1 Left Medial Lower Extremity -Time 11:23 11:36 11:24 -Correct Patient Yes Yes Yes -Correct Side, Site, Position Yes Yes Yes -Correct Procedure Yes Yes Yes -Procedure Performed Yes Yes Yes -Type of Procedure Debridement Debridement Debridement -Clinical Debridement Subcutaneous Subcutaneous Subcutaneous -Tissue Removed Subcutaneous Subcutaneous Subcutaneous -Post Debridement (cm) - Length 2.5 2.1 1.5 -Post Debridement (cm) - Width 2.5 2.1 1.6 -Post Debridement (cm) - Depth 0.1 0.1 0.1 -Total Square (Post) (cm) 6.25 4.41 2.40 -Area of Debridement (cm) - Length 2.5 2.1 1.5 -Area of Debridement (cm) - Width 2.5 2.1 1.6 -Total Square (Area) (cm) 6.25 4.41 2.40 -Tunneling No No No -Undermining/Tunneling No No No -Circular Undermining No No No -Wound/Ulcer Outcome Not Healed Not Healed Not Healed -Ulcer Cleansing Rinsed/ Rinsed/ Rinsed/ Irrigated with Irrigated with Irrigated with Saline Saline Saline -Foul Odor after Cleansing No No No -Bioengineered Tissue No Yes Yes -Type of Bioengineered Tissue PuraPly AM NuShield Disc -Expiration Date 10/31/22 -Product Lot Number [id number] -Percent Used 100 -Lot number of Saline Used [id number] -Bleeding Controlled with Pressure Pressure Pressure -Offloading No -Treatment Response Procedure Procedure Procedure Tolerated Well Tolerated Well Tolerated Well -Debridement - Subq, 1st 20sq cm Yes No No -Apply Skin Sub - 1st 25 sq cm - Legs 1 1 -NuShield 16mm Disc 2 -PuraPly AM (per sq cm) 4 Pain Scale: 0-10 Numeric Is Patient Pain Free? Yes Yes Yes 12/08/20 10:31 Wound Center Nurse 2 #1 Left Medial Lower Extremity -Time 10:17 -Correct Patient Yes -Correct Side, Site, Position Yes -Correct Procedure Yes -Procedure Performed Yes -Type of Procedure Debridement -Clinical Debridement Subcutaneous -Tissue Removed Subcutaneous -Post Debridement (cm) - Length 1.0 -Post Debridement (cm) - Width 1.0 -Post Debridement (cm) - Depth 0.2 -Total Square (Post) (cm) 1.00 -Area of Debridement (cm) - Length 1.0 -Area of Debridement (cm) - Width 1.0 -Total Square (Area) (cm) 1.00 -Tunneling No -Undermining/Tunneling No -Circular Undermining No -Wound/Ulcer Outcome Not Healed -Ulcer Cleansing Rinsed/ Irrigated with Saline -Foul Odor after Cleansing No -Bioengineered Tissue Yes -Type of Bioengineered Tissue NuShield Disc -Expiration Date 02/10/25 -Product Lot Number [id number] -Percent Used 100 -Lot number of Saline Used -Bleeding Controlled with Pressure -Offloading -Treatment Response Procedure Tolerated Well -Debridement - Subq, 1st 20sq cm No -Apply Skin Sub - 1st 25 sq cm - Legs 1 -NuShield 16mm Disc 2 -PuraPly AM (per sq cm) Pain Scale: 0-10 Numeric Is Patient Pain Free? Yes - Nurse 3 - General Ulcer D/C NN Start: 11/18/20 11:02 Freq: Status: Active Protocol: Activity Type Activity Date Activity User E-Sign Co-Sign Detail Recorded Client Recorded Date Recorded By Document 11/25/20 12:04 KR [id number] 11/25/20 12:05 KR Edit Result 11/25/20 12:04 KR (1) [id number] 11/28/20 06:59 PL Document 12/02/20 13:43 PL [id number] 12/02/20 13:46 PL Document 12/08/20 10:37 DL [id number] 12/08/20 10:38 DL Edit Result 12/08/20 10:37 DL (2) [id number] 12/08/20 10:39 DL (1) Left - Multi-Layered Wrap Application => Multi-Layer Comp - => Left ($) (2) Notes: => BP rechecked: 158/79. 11/25/20 12/02/20 12/08/20 12:04 13:43 10:37 Wound Care Nurse 3 #1 Left Medial Lower Extremity -Ulcer Cleansing Rinsed/ Irrigated with Saline -Foul Odor after Cleansing No No -Other Dressing ABD Nushield -Primary Dressing Covered/Secured with Dry Gauze,Dry Dry Gauze & Gauze & Roll Roll Gauze, Gauze,Secured Secured with with Tape Tape Left -Multi-Layered Wrap Application Multi-Layer Multi-Layer Multi-Layer Comp - Left ($) Comp - Left ($) Comp - Left ($) Treatment Response Procedure Tolerated Well Pain Scale: 0-10 Numeric Is Patient Pain Free? Yes Yes Yes WC - Visit Discharge Discharge Condition Stable Stable Ambulatory Status Ambulatory Ambulatory Transportation Private Auto Private Auto Accompanied by Notes: BP rechecked: 158/79. Wound debrided: Left distal medial calf Laterality: Left Type of Debridement: Excisional debridement Anesthesia Used: 5% Lidocaine Gel Depth: Down to and including healthy tissue and in the subcutaneous layer Percentage of wound debrided: 100 Instrument Used: 5mm curette Tissue Removed: Bioburden and remnants of a prior NuShield skin substitute Severity: Fat Layer Exposed Amount of bleeding with debridement: Mild Bleeding Controlled with: Compression and gauze Patient tolerated procedure: Patient tolerated procedure well Debridement Free Text: Following a routine excisional debridement, which was well-tolerated, a 16mm circular NuShield allograft was placed topically. It was applied in the appropriate orientation. Adaptic Touch was then placed, and secured using Steri-Strips. Collagen hydrogel was then placed topically, and a dry sterile gauze dressing was placed. The left lower extremity was then wrapped with a 3M 2 layer compression wrap. Assessment/Plan Assessment/Plan (1) Traumatic wound: (2) Nonhealing ulcer of left lower leg with fat layer exposed: CODE(S): L97.922 - Non-pressure chronic ulcer of unspecified part of left lower leg with fat layer exposed (3) Venous ulcer of left leg: CODE(S): I83.029 - Varicose veins of left lower extremity with ulcer of unspecified site; L97.929 - Non-pressure chronic ulcer of unspecified part of left lower leg with unspecified severity (4) Atherosclerotic heart disease [place] coronary artery w/angina pectoris: CODE(S): I25.119 - Atherosclerotic heart disease of [place] coronary artery with unspecified angina pectoris QUALIFIERS: [place] vs. transplanted heart: [place] heart Qualified Code(s): I25.119 - Atherosclerotic heart disease of [place] coronary artery with unspecified angina pectoris (5) Nicotine abuse: CODE(S): Z72.0 - Tobacco use (6) Hypertension: CODE(S): I10 - Essential (primary) hypertension QUALIFIERS: Hypertension type: essential hypertension Qualified Code(s): I10 - Essential (primary) hypertension (7) Presence of stent in coronary artery in patient with coronary artery disease: CODE(S): I25.10 - Atherosclerotic heart disease of [place] coronary artery without angina pectoris; Z95.5 - Presence of coronary angioplasty implant and graft (8) COPD (chronic obstructive pulmonary disease): CODE(S): J44.9 - Chronic obstructive pulmonary disease, unspecified (9) Hearing deficit: CODE(S): H91.90 - Unspecified hearing loss, unspecified ear (10) Obesity: CODE(S): E66.9 - Obesity, unspecified PLAN: This is a 70-year-old female with multiple pre-existing medical problems, which are listed above. Debridement and reapplication of a NuShield allograft has been performed today. This is the second such allograft application. The wound itself appears to be generally healthy in appearance, and progressing well. A 3M 2 layer compression wrap is to be reapplied to the left lower extremity, and the allograft and compression wrap will be left in place, undisturbed, until the patient's follow-up visit next week. A venous study has been previously ordered, and is to be conducted in the near future. Serial debridements and allograft applications are anticipated. Total time: 46 minutes.
== END 2020-12-12 23:59 ==
LOC: WC 09:55
PROVIDERS: PCP Family Medicine; Visit Provider Nurse Practitioner Family
DX: I83.028 Varicose veins of left lower extremity with ulcer other part of lower leg (principal); L97.822 Non-pressure chronic ulcer of other part of left lower leg with fat layer exposed; I10 Essential (primary) hypertension; Z95.5 Presence of coronary angioplasty implant and graft; F17.210 Nicotine dependence, cigarettes, uncomplicated; J44.9 Chronic obstructive pulmonary disease, unspecified; I25.10 Atherosclerotic heart disease of native coronary artery without angina pectoris; S80.812S Abrasion, left lower leg, sequela; W06.XXXS Fall from bed, sequela; I69.354 Hemiplegia and hemiparesis following cerebral infarction affecting left non-dominant side; Z79.02 Long term (current) use of antithrombotics/antiplatelets; E66.9 Obesity, unspecified
CPT/HCPCS: 11042; 15271; 29581; Q4160; Q4196

== ENCOUNTER 2020-12-23 10:34 | Outpatient (RCR) | payer MEDICARE, BC, SELFPAY ==
[2020-12-13 00:37] VITALS: BP 181/104; PULSE 94; RESP 22; TEMP 36.8
[2020-12-23 10:43] VITALS: BP 201/104; TEMP 35.9; BMI 33.1
[2020-12-23 11:57] VITALS: BP 180/96; PULSE 78
--- NOTE | 2020-12-23 13:14 | PN.PCM_ITS ---
History of Present Illness Date of Service: 12/23/20 Chief Complaint: Left leg wound History of Wound: Gladis is a pleasant 70-year-old female with a past medical history of hypertension, stroke, coronary artery disease status post coronary stenting, and COPD. She presents today to the wound healing center for an initial evaluation of a left leg wound. She reports that her wound occurred approximately 1 month ago when she fell out of bed and scratched her left leg. She has been using Medihoney and a Telfa pad as a wound dressing, and changing this daily. She has been washing the wound with antibacterial soap and water daily. She does not use compression. She denies any history of vascular disease in the lower extremities. She denies any history of diabetes or renal disease. She suffered a stroke toward the end 2019, and has some residual left-sided upper and lower extremity weakness. She takes Plavix. She is a daily smoker. The patient denies fever, chills, nausea, vomiting, or diarrhea. The patient has not had significant redness, swelling, or purulent/malodorous drainage from affected area. Progress of Wound: The patient presents today for follow-up of her left lower extremity ulcer. Her left lower extremity ulcer is healed today after 1 applications of Puraply and 2 applications of Nushield. The patient admits today to having another ulcer of which also occurred at the time of her fall from bed. This ulcer is located on her left lateral thigh. She has been using Manuka Honey and Aquacel Ag dressings daily to this ulcer. She has had a small amount of drainage from this ulcer. This ulcer is tender to palpation. She denies malodorous drainage. There is no periulcer erythema or warmth. Objective Data Objective Data Vital Signs: Vital Signs Temp Pulse Resp BP 96.7 F L 78 22 H 180/96 H 12/23/20 10:43 12/23/20 11:57 12/13/20 00:37 12/23/20 11:57 Body Mass Index (BMI) 33.1 Charges/Coding Procedures Integumentary [id number]: [id number] Zoya subq tissue 20 sq cm/< Physical Exam Const alert, no apparent distress and healthy appearing General Appearance: cooperative, comfortable and well kempt HEENT Head and Scalp: normocephalic and atraumatic General Ear: hearing grossly impaired Eyes EOMs intact bilaterally Neck supple and no JVD Resp normal respiratory effort Extremity normal capillary refill, no joint enlargement and no calf tenderness General Extremity: edema left lower extremity trace; Negative for clubbing or cyanosis Peripheral Pulses: Yes dorsalis pedis pulses present left 2+ Skin Wounds: wounds noted No malodorous Wound Narrative: Medial left lower leg ulcer is healed today. The patient has an ulcer of the left lateral thigh with subcutaneous layer exposed. There is a scant amount of drainage, which is nonodorous. This ulcer is tender to palpation. No periulcer erythema present. No periulcer swelling present. No tunneling, undermining, or probing to bone. 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 Any new allergies or adverse reactions No Had a fall/change in ADL's that may No increase risk of falls Signs or symptoms of abuse and/or No neglect since last visit Have you been in the hospital since your No last visit? Has dressing in place as prescribed Yes Has compression in place as prescribed N/A Has offloadiing in place as prescribed N/A Experienced any changes in pain level or No management Left Footwear Regular Shoe Right Footwear Regular Shoe Pain Scale: 0-10 Numeric Is Patient Pain Free? Yes - Nurse 1 - General Ulcer Measurement Start: 12/23/20 10:43 Freq: Status: Active Protocol: Activity Type Activity Date Activity User E-Sign Co-Sign Detail Recorded Client Recorded Date Recorded By Document 12/23/20 10:43 KR [id number] 12/23/20 10:48 KR 12/23/20 10:43 Wound Center Nurse 1 #1 Left Medial Lower Extremity -Current Size (cm) - Length 1.6 -Current Size (cm) - Width 1.5 -Current Size (cm) - Depth 0.1 -Total Square Cm 2.40 -Exudate Amt None Present -Wound Margin Distinct, Outline Attached -Granulation Amt Small (1-33%) -Granulation Quality Red -Necrosis Amt Small (1-33%) -Necrotic Tissue Type Adherent Slough -Texture (Viktoriya-wound Skin Appearance) Assessed, Scarring -Moisture (Viktoriya-wound Skin Appearance) Assessed,Dry/ Scaly -Color (Viktoriya-wound Skin Appearance) No Abnormality, Assessed -Temperature (Viktoriya-wound Skin No Abnormality Appearance) (Pt Warm) -Tenderness on Palpation (Viktoriya-wound No Skin Appearance) -Ulcer Cleansing Rinsed/ Irrigated with Saline -Foul Odor after Cleansing No -Anesthetic Used 5% Lidocaine Gel WC - Nurse 2 - General Ulcer CM Notes Start: 12/23/20 10:43 Freq: Status: Active Protocol: Activity Type Activity Date Activity User E-Sign Co-Sign Detail Recorded Client Recorded Date Recorded By Document 12/23/20 13:04 [email or web address] [id number] 12/23/20 13:06 PL 12/23/20 13:04 Wound Center Nurse 2 # 2 Left Lat Thigh -Time 11:27 -Correct Patient Yes -Correct Side, Site, Position Yes -Correct Procedure Yes -Procedure Performed Yes -Type of Procedure Debridement -Clinical Debridement Subcutaneous -Tissue Removed Subcutaneous -Post Debridement (cm) - Length 2.0 -Post Debridement (cm) - Width 2.0 -Post Debridement (cm) - Depth 0.1 -Total Square (Post) (cm) 4.00 -Area of Debridement (cm) - Length 2.0 -Area of Debridement (cm) - Width 2.0 -Total Square (Area) (cm) 4.00 -Tunneling No -Undermining/Tunneling No -Circular Undermining No -Wound/Ulcer Outcome Not Healed -Ulcer Cleansing Rinsed/ Irrigated with Saline -Foul Odor after Cleansing No -Bioengineered Tissue No -Bleeding Controlled with Pressure -Treatment Response Procedure Tolerated Well -Debridement - Subq, 1st 20sq cm Yes Pain Scale: 0-10 Numeric Is Patient Pain Free? Yes WC - Nurse 3 - General Ulcer D/C NN Start: 12/23/20 10:43 Freq: Status: Active Protocol: Activity Type Activity Date Activity User E-Sign Co-Sign Detail Recorded Client Recorded Date Recorded By Document 12/23/20 11:57 CHRISTIANNE [id number] 12/23/20 11:58 CHRISTIANNE 12/23/20 11:57 Wound Care Nurse 3 #1 Left Medial Lower Extremity -Primary Dressing Applied C Hydrogel ($) -Primary Dressing Covered/Secured with Dry Gauze, Secured with Tape Left -Tubular Bandage Double Layer -Size of Tubigrip Used Size F -Size F ($) 2 Vital Signs Pulse Rate (60-100) 78 Pulse Location Monitor Blood Pressure (90/60-120/80) 180/96 H Blood Pressure Mean (mm Hg) 124 Source Monitor Position Sitting Blood Pressure Location Right Arm Pain Scale: 0-10 Numeric Is Patient Pain Free? Yes Wound debrided: Left lateral thigh ulcer Laterality: Left Type of Debridement: Excisional debridement Anesthesia Used: Cetacaine Depth: in the subcutaneous layer Percentage of wound debrided: 100 Instrument Used: 5mm curette Tissue Removed: Slough and devitalized tissue Severity: Fat Layer Exposed Amount of bleeding with debridement: Mild Bleeding Controlled with: Pressure Patient tolerated procedure: Patient did not tolerate procedure well Assessment/Plan Assessment/Plan (1) Traumatic wound: (2) Nonhealing ulcer of left lower leg with fat layer exposed: CODE(S): L97.922 - Non-pressure chronic ulcer of unspecified part of left lower leg with fat layer exposed (3) Venous ulcer of left leg: CODE(S): I83.029 - Varicose veins of left lower extremity with ulcer of unspecified site; L97.929 - Non-pressure chronic ulcer of unspecified part of left lower leg with unspecified severity (4) Nicotine abuse: CODE(S): Z72.0 - Tobacco use (5) Hypertension: CODE(S): I10 - Essential (primary) hypertension QUALIFIERS: Hypertension type: essential hypertension Qualified Code(s): I10 - Essential (primary) hypertension (6) Presence of stent in coronary artery in patient with coronary artery disease: CODE(S): I25.10 - Atherosclerotic heart disease of [place] coronary artery without angina pectoris; Z95.5 - Presence of coronary angioplasty implant and graft (7) COPD (chronic obstructive pulmonary disease): CODE(S): J44.9 - Chronic obstructive pulmonary disease, unspecified QUALIFIERS: COPD type: unspecified COPD Qualified Code(s): J44.9 - Chronic obstructive pulmonary disease, unspecified (8) Obesity: CODE(S): E66.9 - Obesity, unspecified QUALIFIERS: Obesity type: unspecified obesity type Obesity classification: unspecified obesity classification Serious obesity comorbidity presence: with serious comorbidity Qualified Code(s): E66.9 - Obesity, unspecified PLAN: Left lower leg ulcer is healed today after 1 application of Puraply and 2 applications of Nushield. She was instructed on daily use of compression to prevent further ulcers from developing. She was also instructed to continue leg elevation as previously instructed. The patient admits to having a second wound today, which is located on her left lateral thigh. Debridement of the left lateral thigh ulcer performed today in clinic as annotated above. Given the duration of the wound and failure of the wound to respond to standard wound care, and her previous remarkable response to Puraply and Nushield when used on her left lower leg ulcer, we will apply for advanced skin substitutes (Puraply, Nushield, Apligraf). Hydrogel and gauze dressing applied to the left lateral thigh ulcer today. Double Tubigrip's applied to extend above the thigh ulcer. At home wound-care instructions: Perform daily dressing changes with hydrogel and gauze. Wash ulcer daily with antibacterial soap and water, and rinse and dry thoroughly prior to each dressing change. Change dressings more frequently as needed due to contamination. Compression: Utilize double Tubigrip's daily for compression. These are to be worn above the thigh ulcer. Do not allow the edge of the Tubigrip's to rub agai nst the thigh ulcer. Off-loading: The patient was instructed to avoid pressure and friction on the affected areas. Reposition every 2 hours at minimum. Avoid prolonged standing and/or dangling of legs. When seated, feet should be elevated at chest level. Frequent ambulation is encouraged. Diet: Patient encouraged to increase protein intake. She has been compliant with these instructions and reports using protein shakes daily for supplementation. Smoking: The risks of smoking and benefits of smoking cessation were discussed with the patient today. The patient is encouraged to reduce or quit smoking. If smoking cessation aids are desired, the patient should contact their primary care provider to discuss appropriate options. Labs/cultures/imaging: Antibiotics deferred today due to no clinical evidence of infection. Routine baseline lab work reviewed as annotated above. Venous studies ordered; have yet to be scheduled. Follow-up: Return to clinic in 2 weeks for re-evaluation. Return sooner or report to the emergency room should symptoms worsen, or new symptoms arise. The patient has demonstrated uncontrolled hypertension at her wound healing center visits. She was advised to follow-up with her primary care provider regarding her elevated blood pressure, and educated on the importance of strict blood pressure control in prevention of stroke. Note: [employer] speech recognition proof load mechanic software was used to create portions of this document. Sound-alike and misspelled words, as well as other proof load mechanic errors may be contained in the documentation.
== END 2021-01-11 23:59 ==
LOC: WC 10:34
PROVIDERS: PCP Family Medicine; Visit Provider Nurse Practitioner Family
DX: I83.021 Varicose veins of left lower extremity with ulcer of thigh (principal); L97.122 Non-pressure chronic ulcer of left thigh with fat layer exposed; I10 Essential (primary) hypertension; I25.10 Atherosclerotic heart disease of native coronary artery without angina pectoris; Z95.5 Presence of coronary angioplasty implant and graft; J44.9 Chronic obstructive pulmonary disease, unspecified; E66.9 Obesity, unspecified; F17.200 Nicotine dependence, unspecified, uncomplicated; I69.354 Hemiplegia and hemiparesis following cerebral infarction affecting left non-dominant side; Z79.02 Long term (current) use of antithrombotics/antiplatelets
CPT/HCPCS: 11042; 87070; 87075; 87186; 87205